=== PATIENT | female | born 1995 | race Caucasian/White ===

== ENCOUNTER 2019-10-10 21:31 | Outpatient (CLI) | payer OTHER, SELFPAY ==
--- NOTE | 2019-10-10 21:31 | OBADM ---
This patient, Melony Lopez, admitted to the OB room 107 to rule out rupture. Patient/family oriented to hospital policies and general routines including ID bracelet, bed and alarms, visiting hours, pain management, procedures, bathroom and other care routines, personal items, smoking policy, room service/diet, and visiting hours. Patient/Family are encouraged to report perceived risks to care and to ask questions if they do not understand what they are told or what they should do.
[2019-10-10 22:08] VITALS: BP 137/89; PULSE 120
== END 2019-10-10 22:20 | disposition home or self-care (01) ==
PROVIDERS: Visit Provider Obstetrics & Gynecology
DX: Z36.9 Encounter for antenatal screening, unspecified (principal); Z3A.00 Weeks of gestation of pregnancy not specified
CPT/HCPCS: 59025; 84112

== ENCOUNTER 2019-10-14 05:00 | Inpatient (IN) | payer OTHER, SELFPAY ==
[2019-10-14] VITALS (111 sets, daily range): BP systolic 87–132; BP diastolic 18–93; PULSE 79–147; RESP 18–20; TEMP 37–38.8; O2SAT 93–100; BMI 44.3
[2019-10-14 05:48] LABS: Basophils Absolute Auto 0.1 K/mm3 (0.0-0.1); Basophils Percent Auto 0.3 % (0.2-1.2); Eosinophils Absolute Auto 0.1 K/mm3 (0-0.3); Eosinophils Percent Auto 0.9 % (0-4.4); Hematocrit 36.3 % (37.0-47.0); Hemoglobin 12.8 g/dL (12.0-15.0); Immature Granulocyte Absolute 0.17 K/mm3 (0.00-0.031); Immature Granulocyte Percent A 1.1 % (0-0.5); Lymphocytes Absolute Auto 2.29 K/mm3 (0.9-3.2); Lymphocytes Percent Auto 15.1 % (18.3-44.2); Mean Corpuscular HGB Conc 35.3 g/dl (32-36); Mean Corpuscular Hemoglobin 30.8 pg (26-34); Mean Corpuscular Volume 87.3 fl (80-100); Mean Platelet Volume 10.3 fl (7.4-10.4); Monocytes Absolute Auto 1.3 K/mm3 (0.1-0.6); Monocytes Percent Auto 8.6 % (2.6-8.5); Neutrophils Absolute Auto 11.2 K/mm3 (1.3-6.7); Platelet Count Result 191 k/mm3 (150-375); Red Blood Count 4.16 M/mm3 (4.2-5.4); Red Cell Distribution Width 12.8 % (11.5-14.5); White Blood Count 15.1 K/mm3 (4.5-10.0)
[2019-10-14] MEDS: LACTATED RINGERS 1,000 ML 125 ML IV CONT ×3 (07:11→18:19)
[2019-10-14] MEDS: OXYTOCIN 30 UNITS/NS 500 ML 30 UNITS/500 ML BAG 6 UNITS IV CONT (07:12)
--- NOTE | 2019-10-14 07:42 | WPDOBADMIT ---
Obstetrics - Admit Note Admission Note: record reviewed. No pertinent additions to the history and/or any subsequent changes in the physical findings that are not consistent with the expected course of the were found. Additions to the history and/or subsequent changes in the physical findings follow. at 40+3 for induction of labor. Cervix 2-3/80/-1 AROM with thin meconium. GBS negative. Continue pitocin.
[2019-10-14 09:47] LABS: Rapid Plasma Reagin Non-Reactive (NonReactive)
--- NOTE | 2019-10-14 09:48 | WPDANESEPPF ---
Anes - Initial Pre Proc Eval Procedure: Labor Epidural Date/Time: 10/14/19 09:48 Surgeon: Selena Santiago MD Pre Op Diagnosis: IOL Patient Data Age: 24 Gender: F Height: 1.57 m Weight: Last Vital Signs Pulse 106 H 10/14/19 09:31 BP 127/85 10/14/19 09:31 Allergies Allergy/AdvReac Type Severity Reaction Status Date / Time No Known Allergies Allergy Verified 05/07/19 13:22 Home Medications Medication Instructions Recorded Confirmed Type PNV cmb#95-ferrous fumarate-FA 1 tablet PO DAILY 09/10/19 10/10/19 History [] Laboratory Tests 10/14/19 10/14/19 10/14/19 05:37 05:37 05:37 WBC 15.1 K/mm3 H K/mm3 (4.5-10.0) RBC 4.16 M/mm3 L M/mm3 (4.2-5.4) Hgb 12.8 g/dL g/dL (12.0-15.0) Hct 36.3 % L % (37.0-47.0) MCV 87.3 fl fl (80-100) MCH 30.8 pg pg (26-34) MCHC 35.3 g/dl g/dl (32-36) RDW 12.8 % % (11.5-14.5) Plt Count 191 k/mm3 k/mm3 (150-375) MPV 10.3 fl fl (7.4-10.4) Immature Gran % (Auto) 1.1 % H % (0-0.5) Neut % (Auto) 74.0 % H % (45.5-73.1) Lymph % (Auto) 15.1 % L % (18.3-44.2) [place] % (Auto) 8.6 % H % (2.6-8.5) Eos % (Auto) 0.9 % % (0-4.4) Baso % (Auto) 0.3 % % (0.2-1.2) Lymph # (Auto) 2.29 K/mm3 K/mm3 (0.9-3.2) [place] # (Auto) 1.3 K/mm3 H K/mm3 (0.1-0.6) Eos # (Auto) 0.1 K/mm3 K/mm3 (0-0.3) Baso # (Auto) 0.1 K/mm3 K/mm3 (0.0-0.1) Abs Immat Gran (auto) 0.17 K/mm3 H K/mm3 (0.00-0.031) Absolute Neuts (auto) 11.2 K/mm3 H K/mm3 (1.3-6.7) Absolute Nucleated RBC 0.0 K/mm3 K/mm3 (0.0-0.012) Nucleated RBC % 0.0 % % (0.0-0.2) RPR Non-reactive (NonReactive) Blood Type O Positive Antibody Screen Negative Patient hx anesthesia problems: none Family hx anesthesia problems: none PMFSH Family History Family History Other No pertinent family history Social History Social History (System 05/07/19 @ 13:[address] [facility]) Smoking status: Never smoker Substance use: never Gender identity (if verbalized by the patient): Female Spiritual care concerns: No Anes - Eval Final PreProcedure Day of Procedure 10/14/19 09:48 Informed Consent: The patient's anesthetic plan and its attendant risks and benefits were discussed with the patient/family/POA. Questions were solicited and answers provided to the satisfaction of the patient/family/POA.
[2019-10-14] MEDS: SODIUM CHLORIDE 0.9% IV 300 ML 600 ML I-UTERINE (13:15)
--- NOTE | 2019-10-14 18:06 | P.PNOB_ITS ---
OB - PN: Subj Subjective Date/time seen: 10/14/19 18:06 patient is comfortable but feeling slightly warm or fevers. OB - PN: Obj Data Labs CBC & Chem 7: 10/14/19 05:37 Labs: Laboratory Results - last 24 hr 10/14/19 10/14/19 10/14/19 05:37 05:37 05:37 WBC 15.1 H RBC 4.16 L Hgb 12.8 Hct 36.3 L MCV 87.3 MCH 30.8 MCHC 35.3 RDW 12.8 Plt Count 191 MPV 10.3 Immature Gran % (Auto) 1.1 H Neut % (Auto) 74.0 H Lymph % (Auto) 15.1 L [place] % (Auto) 8.6 H Eos % (Auto) 0.9 Baso % (Auto) 0.3 Lymph # (Auto) 2.29 [place] # (Auto) 1.3 H Eos # (Auto) 0.1 Baso # (Auto) 0.1 Abs Immat Gran (auto) 0.17 H Absolute Neuts (auto) 11.2 H Absolute Nucleated RBC 0.0 Nucleated RBC % 0.0 RPR Non-reactive Blood Type O Positive Antibody Screen Negative OB - PN A/P Assessment and Plan (1) : Code(s): Z34.90 - Encounter for supervision of normal , unspecified, unspecified trimester Status: Acute (2) Failure to progress in first stage of labor: Status: Acute Assessment and Plan: This patient is a 24-year-old 2 para 0 at 39 weeks gestation who was induced today. She has failed to progress beyond 5 cm. She has been 5 cm for over 5 hours. She developed a fever. There is reassuring status. I have discussed this with the patient we have agreed to proceed with delivery. She understands risks, benefits, and alternatives. She has completed the informed consent process radiate proceed. Time Spent With Patient Time: Total time spent is greater than 50% in coordination of care (as documented) at patient's floor/unit and/or counseling patient: Exam Const: General: comfortable, no acute distress and alert Resp: Effort & Inspection: normal respiratory effort Auscultation: no broomcorn scraper ckles, no rales and no rhonchi Cardio: Rate: regular rate Heart sounds: no click, no murmurs and no rubs GI: Inspection: non-distended GI Palp: No Tenderness to palpation present (GI) Auscultation: normal bowel sounds : Manual OB Exam: dilated 5 cm, effaced fully and station -2 Extrem: General: normal to inspection, no pedal edema and no calf tenderness
[2019-10-14] MEDS: AMPICILLIN 2 GM/NS 100 ML 2 GM/100 ML BAG IVPB (18:28)
[2019-10-14] MEDS: CLINDAMYCIN 900 MG/NS 50 ML 900 MG/50 ML PIGGYBACK 50 MG IVPB (18:44)
[2019-10-14] MEDS: GENTAMICIN SULFATE INJ 370 MG in DEXTROSE 5% 100 ML 109.3 MG IVPB (19:08)
--- NOTE | 2019-10-14 20:33 | P.OP_ITS ---
Procedure Note - Detailed Date of procedure: 10/14/19 Pre-op diagnosis: IOL Failure to Progress, Malposition of the HEad Post-op diagnosis: same Procedure performed: low-transverse delivery Description of procedure: The patient was taken the operating room. She was prepped and draped in the dorsal supine position with leftward tilt after induction of spinal anesthetic. When anesthesia was found to be adequate a low- transverse skin incision was made and carried down to the level the fascia with the knife. The fascial incision was made at the midline with a scalpel. The fascial incision was extended laterally with Vasques scissors. The fascia was tented upward superior and inferior with Lillian clamps. The rectus muscles were dissected off bluntly. The rectus muscles at the midline. The preperitoneal fat was dissected bluntly at the superior aspect of the separate the rectus muscles. The peritoneal cavity was entered bluntly in the same area. The peritoneal incision was extended superior and inferior with good visualization of bladder. Bladder blade was inserted. A low-transverse incision was made on the uterus with the scalpel. It was carried down the level of the amniotic cavity with a knife. The amniotic cavity bluntly. The uterine incision was made laterally with blunt traction. The was delivered. The cord was clamped and cut. The was handed off to waiting pediatric staff. Cord bloods were obtained. The placenta was removed manually. The uterus was exteriorized. Uterus cleared of all clots and debris. Uterus closed in 0 Vicryl in a running locked fashion. An imbricating layer of 0 Vicryl was also placed on the to bolster the closure. The uterus was returned to the abdomen. The gutters were cleared of all clots and debris. The fascia was closed 0 Vicryl in a running fashion. Subcutaneous tissue was irrigated and bleeding areas were cauterized. The skin was closed with subcuticular absorbable mainor. The incision was covered with derma sosa. The patient tolerated the procedure well. She was taken recovery room stable condition. Sponge, lap, needle counts were correct x2. Anesthesia: spinal and epidural Surgeon: Fracisco Bryan MD Estimated blood loss (mL): 645 Drains: No Packing: No Pathology: none sent Complications: No immediate complications Condition: stable Disposition: floor Findings: Normal maternal anatomy. Average size infant with normal Apgars. No gross evidence of abruption.
[2019-10-14] MEDS: KETOROLAC 30 MG/ML VIAL (*BKC) IV PUSH (21:45)
--- NOTE | 2019-10-14 23:27 | SUR.PHASEI ---
CLEANED UP PADS AND TOOK OUT EPIDURAL INTACT WITH BANDAID. PUSHED TO NURSERY TO SEE BABY AND SPEND TIME. STATES SHE FEELS GREAT AND PAIN IS MINIMAL.
[2019-10-15] VITALS (11 sets, daily range): BP systolic 98–117; BP diastolic 57–71; PULSE 83–124; RESP 16–18; TEMP 36.7–37.5; O2SAT 95–98
[2019-10-15 05:01] LABS: Basophils Percent Auto 0.1 % (0.2-1.2); Eosinophils Percent Auto 0.3 % (0-4.4); Hematocrit 25.5 % (37.0-47.0); Hemoglobin 7.6 g/dL (12.0-15.0); Immature Granulocyte Absolute 0.07 K/mm3 (0.00-0.031); Immature Granulocyte Percent A 0.9 % (0-0.5); Immature Platelet Fraction Pct 1.5 % (0.9-11.2); Lymphocytes Absolute Auto 0.61 K/mm3 (0.9-3.2); Lymphocytes Percent Auto 7.7 % (18.3-44.2); Mean Corpuscular HGB Conc 29.8 g/dl (32-36); Mean Corpuscular Hemoglobin 31.1 pg (26-34); Mean Corpuscular Volume 104.5 fl (80-100); Mean Platelet Volume 10.8 fl (7.4-10.4); Monocytes Absolute Auto 0.6 K/mm3 (0.1-0.6); Monocytes Percent Auto 8.1 % (2.6-8.5); Neutrophils Absolute Auto 6.6 K/mm3 (1.3-6.7); Neutrophils Percent Auto 82.9 % (45.5-73.1); Platelet Count Result 73 k/mm3 (150-375); Red Blood Count 2.44 M/mm3 (4.2-5.4); Red Cell Distribution Width 13.2 % (11.5-14.5)
--- NOTE | 2019-10-15 07:01 | PC.NURSE ---
Patient and significant other arrived to unit at 2348 on 10/14/19. [place] remains in level 2 nursery at this time. Patient oriented to floor/room and admission packet discussed. Call light placed within reach and all questions answered. Blanquita NOONAN
--- NOTE | 2019-10-15 07:24 | PM.OBPNVD ---
OB - PN: Subj Subjective Date/time seen: 10/15/19 07:24 Patient comments: no complaints, pain well controlled, tolerating diet and flatus present OB - PN: Obj Data Labs CBC & Chem 7: 10/15/19 04:53 Labs: Laboratory Results - last 24 hr 10/14/19 10/14/19 10/15/19 05:37 05:37 04:53 WBC 8.0 RBC 2.44 L Hgb 7.6 L D Hct 25.5 L MCV 104.5 H D MCH 31.1 MCHC 29.8 L RDW 13.2 Plt Count 73 L D MPV 10.8 H Immature Gran % (Auto) 0.9 H Neut % (Auto) 82.9 H Lymph % (Auto) 7.7 L [place] % (Auto) 8.1 Eos % (Auto) 0.3 Baso % (Auto) 0.1 L Lymph # (Auto) 0.61 L [place] # (Auto) 0.6 Eos # (Auto) 0.0 Baso # (Auto) 0.0 Abs Immat Gran (auto) 0.07 H Absolute Neuts (auto) 6.6 Absolute Nucleated RBC 0.0 Nucleated RBC % 0.0 % Immature Plt Fraction 1.5 RPR Non-reactive Blood Type O Positive Antibody Screen Negative OB - PN A/P Plan day: 1 Comments: Post Op LTCS - no problems, routine recovery Time Spent With Patient Time: Total time spent is greater than 50% in coordination of care (as documented) at patient's floor/unit and/or counseling patient: Exam Const: General: cooperative, healthy appearing, comfortable and no acute distress Resp: Auscultation: no crackles, no rales, no rhonchi and no wheezes Cardio: Rhythm: regular rhythm Heart sounds: no click and no murmurs GI: Inspection: non-distended Auscultation: normal bowel sounds Extrem: General: normal to inspection, no pedal edema and no calf tenderness
--- NOTE | 2019-10-15 08:24 | WPDANLDPN2 ---
Anes-Prog Note L&D Date/Time: 10/15/19 08:24 Comfortable throughout: labor and section Neuraxial method: epidural Epidural/Spinal procedure site: clean & non-tender Neuro status: Neuro function grossly intact. Cardiovascular status: normal Respiratory status: normal Airway patency: baseline Mental status: baseline Post-Op hydration status: normal Vital Signs: Last Vital Signs Temp 37.0 C 10/15/19 03:00 Pulse 96 10/15/19 03:00 Resp 18 10/15/19 03:00 BP 100/60 10/15/19 03:00 Pulse Ox 96 10/15/19 03:00 I/O: Intake & Output 10/14/19 10/15/19 10/15/19 23:59 07:59 15:59 Intake Total 1600 Output Total 550 550 Balance 1050 -550 Post-procedural complaints: none Patient feedback: Patient satisfied with anesthetic care.
--- NOTE | 2019-10-15 08:25 | WPDANLDNPN2 ---
Anes-Prog Note L&D-Neuraxial Date/Time: 10/15/19 08:25 Neuraxial medications: epidural PF morphine Opiod-related complaints: none Patient feedback: Patient satisfied with post-operative pain management.
--- NOTE | 2019-10-15 10:15 | PC.NURSE ---
Mother called out for assist with feeding. Consulted with patient, has been in Level II status, this is infant's first feeding. Reviewed infant feeding cues, frequencies, duration of feedings, feeding elimination flow sheet, and signs of adequate intake. Demonstrated stimulation techniques to wake for feeding. Assisted with to breast. Reviewed positioning/alignment in cross cradle, holding breast in U hold and guided asymmetrical latch on. Discussed rational for each. was able to latch correctly. Infant nursed eagerly, with steady draws and frequent swallowing noted. Reviewed signs of a correct latch, effective nursing and suck swallow ratio. was able to maintain latch without discomfort to mother. Nipple care reviewed. Instructed mother to call out for RN assistance if she is unable to latch for feeding or she has discomfort with nursing. Instructed feeding should be initiated three hours from start of last feeding or if feeding cues are noted before. Mother voiced understanding of information shared.
[2019-10-15] MEDS: ACETAMINOPHEN 325 MG TABLET 650 MG PO ×2 (11:14→17:46)
[2019-10-15] MEDS: POLYSACCHARIDE IRON COMPLEX 150 MG CAPSULE PO ×2 (11:15→17:49)
[2019-10-15] MEDS: SIMETHICONE 80 MG TAB.CHEW PO ×2 (11:16→17:48)
[2019-10-15] MEDS: MULTIVIT/MIN/PREN/FOL AC/IRON TABLET 1 TAB PO (11:16)
[2019-10-15] MEDS: DOCUSATE SODIUM 100 MG CAPSULE PO ×2 (11:16→17:49)
[2019-10-15] MEDS: IBUPROFEN 600 MG TABLET PO ×2 (11:17→17:49)
[2019-10-16] MEDS: ACETAMINOPHEN 325 MG TABLET 650 MG PO ×3 (04:27→16:57)
--- NOTE | 2019-10-16 07:00 | PC.NURSE ---
PT introductions made and plan of care discussed per post op c section, pain management, breast feeding, daily care activities and pending discharge to home. PT verbalized understanding of such care
--- NOTE | 2019-10-16 07:42 | PM.OBPNVD ---
OB - PN: Subj Subjective Date/time seen: 10/16/19 07:42 Patient comments: no complaints, pain well controlled, tolerating diet, flatus present and other (Ambulating and voiding without problems. Lochia similar to menses) baby status: doing well OB - PN: Obj Data Labs CBC & Chem 7: 10/15/19 04:53 OB - PN A/P Plan day: 2 (s/p C section, doing well) Plan: routine care and discharge home (Follow up in 1 week) Time Spent With Patient Time: Total time spent is greater than 50% in coordination of care (as documented) at patient's floor/unit and/or counseling patient: Time with patient: less than 15 minutes Exam Const: General: no acute distress Resp: Auscultation: clear to auscultation bilaterally Cardio: Rate: regular rate Rhythm: regular rhythm GI: Inspection: non-distended, incision (Intact without erythema, drainage, or induration) and other (Fundus firm and nontender below umbilicus) GI Palp: Yes abdominal tenderness (appropriate) and Yes Soft to palpation Extrem: General: no edema
[2019-10-16 08:55] VITALS: BP 108/66; PULSE 86; RESP 16; TEMP 37.3; O2SAT 99
[2019-10-16] MEDS: POLYSACCHARIDE IRON COMPLEX 150 MG CAPSULE PO ×2 (10:16→16:59)
[2019-10-16] MEDS: MULTIVIT/MIN/PREN/FOL AC/IRON TABLET 1 TAB PO (10:16)
[2019-10-16] MEDS: DOCUSATE SODIUM 100 MG CAPSULE PO ×2 (10:16→16:59)
[2019-10-16] MEDS: IBUPROFEN 600 MG TABLET PO ×2 (10:17→16:58)
--- NOTE | 2019-10-16 13:30 | PC.NURSE ---
Mother called out for assist with feeding. Mother is attempting infant to breast in cradle, allowing infant to self attach with a shallow latch reporting slight tenderness Reviewed positioning/alignment in cross cradle, holding breast in U hold and guided asymmetrical latch on. Discussed rational for each. was able to latch correctly. Infant nursed eagerly, with steady draws and [frequent/occasional] swallowing noted. Reviewed signs of a correct latch, effective nursing and suck swallow ratio. was able to maintain latch without discomfort to mother. Mother reports she can feel infant is latched more deeply and has a more consistent suck swallow. Nipple care reviewed. Reviewed feeding cues, frequencies, duration of feedings, feeding elimination flow sheet, and signs of adequate intake. Demonstrated stimulation techniques to wake for feeding. Instructed mother to call out for RN assistance if she is unable to latch for feeding or she has discomfort with nursing. Instructed feeding should be initiated three hours from start of last feeding or if feeding cues are noted before. Mother voiced understanding of information shared.
--- NOTE | 2019-10-16 19:15 | PC.NURSE ---
Carseat provided by parents. Baby [place] T[place] [id number], [facility]. 03/13/2019. All parts present and functioning. Parents educated regarding expiration of carseat in 6 years from [facility] date.
[2019-10-17 11:07] VITALS: BP 135/73; PULSE 123; RESP 14; TEMP 36.9
--- NOTE | 2019-11-09 19:50 | PM.OBDSVD ---
DS: Admitting Diagnosis Admitting Diagnosis Admitting Diagnosis: Encounter for supervision of normal , unspecified, third trimester DS: Discharge Diagnosis Discharge Diagnosis (1) delivery delivered: Code(s): O82 - Encounter for delivery without indication Status: Acute OB - DS: Summary OB Procedures : None OB Procedures Intrapartum: OB Procedures: : None Peripartum Data Infant Delivery Method: Section Procedures: Procedures Operation Date: 10/14/19 19:40 Actual Procedures Side Surgeon p Section Fracisco Bryan MD Status at Discharge Functional status at discharge: independent ambulation Time Spent with Patient Time attestation: Total time spent providing and/or coordinating discharge services: Discharge Plan Discharge Consulting providers: Jennifer Stein Discharging Clinician: Selena Santiago Patient Disposition: Home, Self-Care Activity: may shower, no straining, no driving, as tolerated and pelvic rest Diet: regular Discharge Instructions: Education: Mom and Baby Guide Given to: Mother Follow-Up: Call your delivering provider's office for an appointment to be seen in: 1 Week Mom and baby should come to the [facility] for the follow-up appointment. Appointment Date/Time: October 18, 2019 at 10:00 am What to expect at your follow-up visit: Blood Pressure Check Call [phone] if you are unable to keep your appointment time. BREAST CARE: 1. Wear a snug supportive bra. 2. For engorgement discomfort: Breast Feeding: A. Apply warm moist washcloths B. Express milk as needed to relieve engorgement C. Wear loose clothing Bottle Feeding: A. May apply ice packs 3. For sore nipples: A. Identify correct latch-on B. Apply warm moist washcloths before and after nursing C. Air dry nipples after nursing D. May apply Lansinoh cream to nipples ABDOMINAL INCISION: (if applicable) 1. Allow incision to air dry 2. Do NOT use lotions for powders on your incision 3. When showering, allow soap and water to run over the incision, but do not wash incision PERINEAL CARE: 1. Until bleeding stops, use your vivian bottle after urinating 2. Change your pad frequently throughout the day 3. No tub baths until seen by your physician - You may shower ACTIVITY: 1. Rest as much as possible. 2. Do not exercise or lift anything heavier than your baby (such as laundry or other children.) 3. Avoid stairs or driving as much as possible. 4. Do not put anything into the vagina. No douching, tampons, or sexual activity until seen by physician. NOTIFY PHYSICIAN IF YOU HAVE ANY QUESTIONS OR IF ANY OF THE FOLLOWING SYMPTOMS OCCUR: 1. If your Incision becomes red, swollen, or more painful than what you have experienced in the hospital. 2. If your vaginal bleeding becomes foul smelling. 3. If your vaginal bleeding becomes more heavy than a period or if your bleeding changes from pink to bright red. However, you may pass an occasional walnut-sized clot once or twice for the first week . 4. If you experience a sharp, shooting pain in you calves. 5. If you discover a hard, reddened area on your breast or if you experience flu-like symptoms. 6. Call for temp 100.4 or greater DIET: 1. Eat regular, well-balanced meals. 2. Drink plenty of fluids daily. If , drink to thirst. Patient Instructions: Antibiotic Form Stand Alone Forms: General Discharge Information Follow-up/Referrals: Selena Santiago MD [Physician] - Discharge Medications: New hydrocodone-acetaminophen 5-325 mg Tablet 1 tablet PO Q4H PRN (Reason: Moderate Pain (4-6)) Qty: 30 RF: 0 ibuprofen 600 mg Tablet 600 mg PO Q6H PRN (Reason: Cramping) Qty: 60 RF: 0 Continued PNV cmb#95-ferrous fumarate-FA [] 28 mg
== END 2019-10-16 19:32 | disposition home or self-care (01) | DRG 540 ==
LOC: ANHLDR 05:12 → ANHOB2 23:54
PROVIDERS: Obstetrics & Gynecology; Admitting Provider Obstetrics & Gynecology; Visit Provider Obstetrics & Gynecology
PROC: 10D00Z1 Extraction of Products of Conception, Low, Open Approach (ICD-10-PCS; CPT 59514; principal; 2019-10-14 19:40)
DX: O77.0 Labor and delivery complicated by meconium in amniotic fluid (principal); Z37.0 Single live birth; Z3A.40 40 weeks gestation of pregnancy; O62.0 Primary inadequate contractions; O32.8XX0 Maternal care for other malpresentation of fetus, not applicable or unspecified; O36.8330 Maternal care for abnormalities of the fetal heart rate or rhythm, third trimester, not applicable or unspecified; O75.2 Pyrexia during labor, not elsewhere classified
CPT/HCPCS: 36415; 85025; 85055; 86592; 86850; 86900; 86901; A9270; J0131; J0290; J1580; J1885; J2274; J2370; J2405; J2590; J2795; J7030; J7120